=== PATIENT | female | born 1985 | race Two or more races ===

== ENCOUNTER 2017-04-06 15:43 | Emergency (ER) | payer OTHER ==
[~2017-04-06] VITALS: Ht 162.6 cm; Wt 54.4 kg
[2017-04-06 15:55] VITALS: BP 128/87
--- NOTE | 2017-04-06 16:47 | Emergency Room Report ---
History of Present Illness General Chief Complaint: General Complaint Source: Patient Present Illness HPI 31-year-old female presents to the emergency department complaining of persistent low-grade fevers x3 weeks in addition to nausea, and moderate fatigue. Patient reports initially her symptoms were sore throat, runny nose, cough however those symptoms have subsided yet she continues to require Tylenol or Motrin daily for low-grade fevers. She states she was seen at an urgent care Tuesday she has had 2 courses of antibiotics Z-Jeronimo in addition to Clindamycin. She also reports right sided abdominal pain that waxes and wanes and has been going on for approximately 8 months. Patient takes omeprazole and pepcid. she has been evaluated for this and was supposed to see GI, which she did not. Denies dysuria, urgency, frequency or hematuria. Patient denies abdominal tenderness at this time. She reports that the primary reason for coming to the emergency department today is due to prolonged symptoms of low- grade fever and fatigue. Denies high fevers, neck stiffness, irritability, dehydration, constipation or Diarrhea. Denies Cp, Palpitations, LOC, AMS, seizures, paresthesias, or changes in Hearing or vision, no Sudden severe SCHUSTER. Allergies: Coded Allergies: PENICILLINS (Verified Allergy, Unknown, 04/06/17) Patient History Past Medical History: see triage record Past Surgical History: none Pertinent Family History: none Reviewed Nursing Documentation: PMH: Agreed, PSxH: Agreed Nursing Documentation-PM Past Medical History: No Stated History Review of Systems All Other Systems: negative except mentioned in HPI Physical Exam Vital Signs Date Time Temp Pulse Resp B/P (MAP) Pulse Ox O2 Delivery O2 Flow Rate FiO2 04/06/17 15:55 99.7 91 20 128/87 99 Room Air Sp02 EP Interpretation: reviewed, normal General Appearance: no apparent distress, alert, GCS 15, non-toxic, lethargic Head: normocephalic, atraumatic ENT: hearing grossly normal, normal pharynx, normal voice, uvula midline, moist mucus membranes, other - no exudates or erythema Neck: full range of motion Respiratory: chest non-tender, lungs clear, normal breath sounds, no respiratory distress, no wheezing, speaking full sentences Cardiovascular #1: regular rate, rhythm, normal capillary refill Gastrointestinal: normal bowel sounds, non tender, soft Rectal: deferred Genitourinary: normal inspection, no CVA tenderness Musculoskeletal: back normal, gait/station normal, normal range of motion, non- tender Neurologic: alert, oriented x3, responsive, motor strength/tone normal, sensory intact, normal gait, speech normal, grossly normal Psychiatric: judgement/insight normal Skin: normal color, no rash, warm/dry, well hydrated Lymphatic: other - right submandibular LAD. Medical Decision Making PA Attestation Dr. ruelas is my supervising Physician whom patient management has been discussed with. Diagnostic Impression: Primary Impression: Continued fever Additional Impressions: Fatigue Qualified Codes: R53.83 - Other fatigue UTI (urinary tract infection) Qualified Codes: N30.01 - Acute cystitis with hematuria ER Course 31-year-old female presents to the emergency department complaining of persistent low-grade fevers x3 weeks in addition to nausea, and moderate fatigue. Patient reports initially her symptoms were sore throat, runny nose, cough however those symptoms have subsided yet she continues to require Tylenol or Motrin daily for low-grade fevers. She states she was seen at an urgent care Tuesday she has had 2 courses of antibiotics Z-Jeronimo in addition to Clindamycin. She also reports right sided abdominal pain that waxes and wanes and has been going on for approximately 8 months. Patient takes omeprazole and pepcid. she has been evaluated for this and was supposed to see GI, which she did not. Denies dysuria, urgency, frequency or hematuria. Patient denies abdominal tenderness at this time. She reports that the primary reason for coming to the emergency department today is due to prolonged symptoms of low- grade fever and fatigue. Denies high fevers, neck stiffness, irritability, dehydration, constipation or Diarrhea. Denies Cp, Palpitations, LOC, AMS, seizures, paresthesias, or changes in Hearing or vision, no Sudden severe SCHUSTER. Ddx considered but are not limited to URI, pneumonia, PE, strep pharyngitis, meningitis. Vital signs: Pt. is afebrile, the remaining VS are WNL H&PE are most consistent with URI- no meningeal signs, oropharynx is not involved, no evidence of bacterial infection at this time. - NO exam evidence to suggest acute abdomen. I highly suspect that this patient may have mononucleosis due to prolonged fevers and moderate fatigue, In addition to palpable unilateral lymph nodes on the right side. ORDERS: -Urine Hcg: negative - UA: few bacteria with significantly elevated leukocyte esterase indicating inflammatory response to infection. ED INTERVENTIONS: None required at this time. -d/w pt. conservative treatment, and to follow up with a primary care provider. pt given a list of primary care clinics for follow up. d/w pt. to return to the ED with worsening or new symptoms. --PT. EDUCATION: Discussed antibiotic resistance with inappropriate prescribing of antibiotics for viral illnesses. Discussed signs and symptoms to indicate viral illness versus bacterial illness. DISCHARGE: At this time pt. is stable for d/c to home. Will provide printed patient care instructions, and any necessary prescriptions. Care plan and follow up instructions have been discussed with the patient prior to discharge. Labs Test 04/06/17 17:00 Urine Color Pale yellow Urine Appearance Clear Urine pH 6 (4.5-8.0) Urine Specific Mar Lin 1.010 (1.005-1.035) Urine Protein Negative (NEGATIVE) Urine Glucose (UA) Negative (NEGATIVE) Urine Ketones Negative (NEGATIVE) Urine Occult Blood 1+ (NEGATIVE) Urine Nitrite Negative (NEGATIVE) Urine Bilirubin Negative (NEGATIVE) Urine Urobilinogen Normal MG/DL (0.0-1.0) Urine Leukocyte Esterase 3+ (NEGATIVE) Urine RBC 0-2 /HPF (0 - 2) Urine WBC 2-4 /HPF (0 - 2) Urine Squamous Epithelial Cells Few /LPF (NONE/OCC) Urine Bacteria Few /HPF (NONE) Urine HCG, Qualitative Negative Last Vital Signs Date Time Temp Pulse Resp B/P (MAP) Pulse Ox O2 Delivery O2 Flow Rate FiO2 04/06/17 15:55 99.7 91 20 128/87 99 Room Air Disposition: HOME, SELF-CARE Condition: Stable Scripts Nitrofurantoin Monohyd/M-Cryst* (MACROBID 100 MG*) 100 Mg Capsule 100 MG ORAL EVERY 12 HOURS for 5 Days, #10 CAP Prov: Margaret Sharp 04/06/17 Acetaminophen* (TYLENOL EXTRA STRENGTH*) 500 Mg Tablet 500 MG ORAL Q6H Y for Mild Pain/Temp > 100.5, #30 TAB 0 Refills Prov: Margaret Sharp 04/06/17 Patient Instructions: Infectious Mononucleosis, Urinary Tract Infection, Easy- to-Read Additional Instructions: Take medications as directed. No Contact Sports x 1 month Follow up with a Primary Care Provider in 3-5 days, even if your symptoms have resolved. --Please review list of primary care clinics, if you do not already have a primary care provider Return sooner to ED if new symptoms occur, or current symptoms become worse. - Please note that this Emergency Department Report was dictated using [employer] operator technology software, occasionally this can lead to erroneous entry secondary to interpretation by the dictation equipment. Margaret Sharp Apr 06, 2017 16:47
[2017-04-06 17:27] LABS: APPEARANCE,URINE CLEAR; BILIRUBIN, URINE NEGATIVE (NEGATIVE); COLOR,URINE PALE YELLOW; GLUCOSE, URINE (UA) NEGATIVE (NEGATIVE); KETONES,URINE NEGATIVE (NEGATIVE); LEUKOCYTE ESTERASE ,URINE 3+ (NEGATIVE); NITRITE,URINE NEGATIVE (NEGATIVE); PH,URINE 6 (4.5-8.0); PROTEIN,URINE NEGATIVE (NEGATIVE); UROBILINOGEN,URINE NORMAL MG/DL (0.0-1.0)
[2017-04-06] MEDS ORDERED: NITROFURANTOIN100 M2 ORAL (17:57)
[2017-04-06] MEDS ORDERED: TYLENOL EXTRA500 MG ORAL (17:57)
[2017-04-06 18:10] VITALS: BP 115/74
== END 2017-04-06 18:10 | disposition home or self-care (01) ==
LOC: EMR 18:10
DX: R53.83 Other fatigue (principal); N39.0 Urinary tract infection, site not specified
CPT/HCPCS: 81003; 81025; 99284